=== PATIENT | female | born 1995 | race Caucasian/White ===

== ENCOUNTER 2016-06-04 22:52 | Emergency (ER) | payer OTHER ==
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
[2016-06-05 01:13] VITALS: BP 107/77
== END 2016-06-05 01:19 | disposition home or self-care (01) ==
LOC: ED 22:52
DX: T59.811A Toxic effect of smoke, accidental (unintentional), initial encounter (principal); J70.5 Respiratory conditions due to smoke inhalation; R05 Cough; F41.9 Anxiety disorder, unspecified; Y92.9 Unspecified place or not applicable
CPT/HCPCS: 36415; 82375; 99282